=== PATIENT | male | born 1985 | race Caucasian/White ===

== ENCOUNTER 2018-06-16 13:44 | Inpatient (IN) | payer OTHER ==
[2018-06-16] MEDS ORDERED: ONDANSETRON 4 MG/2 ML VIAL ONE (14:35)
[2018-06-16] MEDS ORDERED: NA CHLORIDE 0.9% 2,000 ML ONE ×2 (14:35→15:36)
[2018-06-16] MEDS ORDERED: FAMOTIDINE 20 MG/2 ML VIAL IV ONE (14:35)
[2018-06-16] MEDS ORDERED: MORPHINE 4 MG/ML SYR ONE ×3 (14:35→17:56)
--- NOTE | 2018-06-16 14:45 | RAD REPORT ---
EXAM DESCRIPTION: Júnior Single View06/16/2018 2:36 pm CLINICAL HISTORY: Abdominal pain COMPARISON: 2012 FINDINGS: The lungs appear clear of acute infiltrate. The heart is normal size IMPRESSION: No acute abnormalities displayed
[2018-06-16 14:52] LABS: Absolute Lymphocytes (CBC) 1.9 K/uL (0.7-4.9); Absolute Monocytes 1.2 K/uL (0.1-1.3); Absolute Neutrophil 10.2 K/uL (1.8-8.0); Basophils % 0.3 % (0-1.3); Eosinophils % 0.5 % (0-4.4); Hematocrit 47.1 % (39.6-49.0); Lymphocytes % 14.3 % (15.3-44.8); MPV 7.8 fL (7.6-11.3); Monocytes % 9.1 % (3.3-12.3); RBC Red Blood Cell Count 5.65 M/uL (4.33-5.43)
[2018-06-16 14:53] LABS: Protime INR 1.16
--- NOTE | 2018-06-16 15:12 | ER ---
Nurse's Notes [facility] Name: Santy Pederson Age: 32 yrs Sex: Male : 1985 Arrival Date: 06/16/2018 Time: 13:47 Bed 19 Private MD: None, None Diagnosis: Abdominal tenderness;Vomiting;Acute pancreatitis;Elevated white blood cell count Presentation: 06/16 13:48 Presenting complaint: Patient states: my stomach has been hurting since Friday, more tw2 maybe at the top, i went to the [facility] yesterday they took blood but told me nothing was wrong, i am nauseous and having some diarrhea. Presenting complaint: Patient states: i feel bloated too. Transition of care: patient was not received from another setting of care. Onset of symptoms was June 16, 2018. Risk Assessment: Do you want to hurt yourself or someone else? Patient reports no desire to harm self or others. Initial Sepsis Screen: Does the patient meet any 2 criteria? No. Patient's initial sepsis screen is negative. Does the patient have a suspected source of infection? No. Patient's initial sepsis screen is negative. Care prior to arrival: None. 13:48 Method Of Arrival: Ambulatory tw2 13:48 Acuity: MARYLOU 3 tw2 Triage Assessment: 13:49 Pain: Complains of pain in epigastric area, right upper quadrant, left upper quadrant, tw2 right lower quadrant and left lower quadrant. GI: Reports bloating, nausea. 13:49 General: Appears uncomfortable, Behavior is cooperative. tw2 Historical: - Allergies: 13:51 Fentanyl (Hives, Rash); itching; tw2 - Home Meds: 13:51 None [Active]; tw2 - PMHx: 13:51 Pancreatitis; tw2 - PSHx: 13:51 stent in gallbladder, but was removed 8 yrs ago; tw2 - Immunization history:: Adult Immunizations. - Social history:: Smoking status: . - Ebola Screening: : Patient denies travel to an Ebola-affected area in the 21 days before illness onset. - Family history:: not pertinent. Screenin:12 Abuse screen: Denies threats or abuse. Nutritional screening: No deficits noted. tw2 Tuberculosis screening: No symptoms or risk factors identified. Fall Risk None identified. Assessment: 14:30 General: Appears in no apparent distress. uncomfortable, Behavior is calm, cooperative, jl7 appropriate for age. Pain: Complains of pain in left upper quadrant and right upper quadrant and epigastric area Pain does not radiate. Pain currently is 8 out of 10 on a pain scale. Quality of pain is described as sharp, Pain began 2-3 days ago. Is continuous. Neuro: Level of Consciousness is awake, alert, obeys commands, Oriented to person, place, time, situation. Cardiovascular: Patient's skin is warm and dry. Respiratory: Airway is patent Respiratory effort is even, unlabored, Respiratory pattern is regular, symmetrical. GI: Bowel sounds present X 4 quads. Abd is soft X 4 quads Abdomen is tender to palpation in right upper quadrant and left upper quadrant. : No signs and/or symptoms were reported regarding the genitourinary system. EENT: No signs and/or symptoms were reported regarding the EENT system. Derm: Skin is pink, warm \T\ dry. Musculoskeletal: No signs and/or symptoms reported regarding the musculoskeletal system. 15:00 Reassessment: Patient states symptoms have improved. jl7 15:30 Reassessment: Patient appears in no apparent distress at this time. Patient and/or jl7 family updated on plan of care and expected duration. Pain level reassessed. Patient is alert, oriented x 3, equal unlabored respirations, skin warm/dry/pink. Pt reports increased pain, ERD notified, see MAR for orders. 16:00 Reassessment: Patient states symptoms have improved. jl7 16:30 Reassessment: Patient appears in no apparent distress at this time. Patient and/or jl7 family updated on plan of care and expected duration. Pain level reassessed. Patient is alert, oriented x 3, equal unlabored respirations, skin warm/dry/pink. 17:00 Reassessment: Patient states symptoms have improved. jl7 17:45 Reassessment: Patient appears in no apparent distress at this time. Patient and/or jl7 family updated on plan of care and expected duration. Pain level reassessed. Patient is alert, oriented x 3, equal unlabored respirations, skin warm/dry/pink. Pt reports increased pain, ERD notified, see MAR for orders. 17:48 Reassessment: Attempted to give report, receiving nurse will call back. jl7 18:08 Reassessment: Attempted to give report, placed on hold for 10 minutes, will continue to jl7 wait for receiving nurse to call back for report. 19:27 Reassessment: Patient appears in no apparent distress at this time. Patient and/or tl2 family updated on plan of care and expected duration. Pain level reassessed. Patient is alert, oriented x 3, equal unlabored respirations, skin warm/dry/pink. Will call report after 1930. General: No complaints of concerns at this time. Pt is resting comfortably. . 20:11 Reassessment: Patient appears in no apparent distress at this time. Patient and/or tl2 family updated on plan of care and expected duration. Pain level reassessed. Patient is alert, oriented x 3, equal unlabored respirations, skin warm/dry/pink. pt stable and ready for transport to floor. Vital Signs: 13:49 BP 136 / 107; Pulse 148; Resp 19; Temp 98.4(TE); Pulse Ox 97% on R/A; Weight 145.15 kg tw2 (R); Pain 8/10; 14:49 BP 130 / 99; Pulse 107; Resp 16 S; Pulse Ox 97% on R/A; Pain 8/10; jl7 17:57 BP 139 / 97; Pulse 96; Resp 16 S; Pulse Ox 96% on R/A; jl7 19:27 BP 150 / 100; Pulse 91; Resp 18; Pulse Ox 97% on R/A; tl2 ED Course: 13:47 Patient arrived in ED. mr 13:48 None, None is Private Physician. mr 13:49 Triage completed. tw2 13:49 Arm band placed on. tw2 13:51 Bed in low position. Call light in reach. Adult w/ patient. tw2 13:57 Jayro Glass MD is Attending Physician. [facility] 13:59 Opal Macario, LYLY is Primary Nurse. jl7 14:28 X-ray completed. Portable x-ray completed in exam room. Patient tolerated procedure ml well. 14:30 XRAY Chest (1 view) In Process Unspecified. EDMS 14:49 Initial lab(s) drawn, by co, sent to lab. Urine collected: clean catch specimen, clear. jl7 Inserted saline lock: 20 gauge in right forearm, using aseptic technique. Blood collected. 14:54 EKG done, by oxygen therapy technician. reviewed by Jayro Glass MD. 3 15:11 Kera Marinelli MD is Hospitalizing Provider. jerson 15:13 Radiology exam delayed due to lab results not completed at this time. (BUN/Creatinine). sw 16:14 CT completed. Patient tolerated procedure well. Patient moved to CT via wheelchair. vm2 Patient moved back from CT. 20:12 No provider procedures requiring assistance completed. Patient admitted, IV remains in tl2 place. Administered Medications: 14:40 Drug: Pepcid 20 mg Route: IVP; Site: right forearm; jl7 15:00 Follow up: Response: No adverse reaction jl7 14:40 Drug: NS 0.9% 1000 ml Route: IV; Rate: 1 bolus; Site: right forearm; jl7 15:39 Follow up: IV Status: Completed infusion; IV Intake: 1000ml jl7 14:40 Drug: NS 0.9% 1000 ml Route: IV; Rate: 1 bolus; Site: right forearm; jl7 15:39 Follow up: IV Status: Completed infusion; IV Intake: 1000ml jl7 14:41 Drug: Zofran 4 mg Route: IVP; Site: right forearm; jl7 15:00 Follow up: Response: No adverse reaction; Nausea is decreased jl7 14:43 Drug: morphine 4 mg Route: IVP; Site: right forearm; jl7 15:00 Follow up: Response: No adverse reaction; Pain is decreased jl7 15:30 Drug: NS 0.9% 1000 ml Route: IV; Rate: 1 bolus; Site: right forearm; jl7 16:30 Follow up: Response: No adverse reaction; IV Status: Completed infusion jl7 15:37 Drug: morphine 4 mg Route: IVP; Site: right forearm; jl7 18:09 Follow up: Response: No adverse reaction; Pain is decreased jl7 15:38 Drug: NS 0.9% 1000 ml Route: IV; Rate: 125 ml/hr; Site: right forearm; jl7 18:10 Follow up: IV Status: Infusion continued upon admission jl7 17:45 Drug: morphine 4 mg Route: IVP; Site: right forearm; jl7 18:30 Follow up: Response: No adverse reaction; Pain is decreased jl7 Intake: 15:39 IV: 1000ml; Total: 1000ml. jl7 15:39 IV: 1000ml; Total: 2000ml. jl7 Outcome: 15:11 Decision to Hospitalize by Provider. jerson 20:12 Admitted to Med/surg accompanied by tech, family with patient, via wheelchair, room tl2 215, with chart, Report called to LYLY Carrasquillo 20:12 Condition: stable 20:12 Discharge instructions given to patient, family, Instructed on the need for admit. 20:13 Patient left the ED. tl2 Signatures: Dispatcher [employer] EDJayro Doherty MD MD cha Rivera, Staci mr Ty, Soraya Abdul, Denise Cohen, RN RN 2 Catie Mead RN RN tl2 Opal Macario RN RN jl7 Trixie Conde [facility] Litzy Bird 3 Corrections: (The following items were deleted from the chart) 18:09 18:09 Response: No adverse reaction; IV Status: Completed infusion jlAlexa jl7
--- NOTE | 2018-06-16 15:13 | EDPHYS ---
Physician Documentation [facility] Name: Santy Pederson Age: 32 yrs Sex: Male : 1985 Arrival Date: 06/16/2018 Time: 13:47 Bed 19 Private MD: None, None ED Physician Jayro Glass HPI: 06/16 15:08 This 32 yrs old Male presents to ER via Ambulatory with complaints of jerson Abdominal Pain. 15:08 The patient presents with abdominal pain in the epigastric area, in the upper abdomen. jerson Onset: The symptoms/episode began/occurred 3 day(s) ago. The symptoms radiate to Associated signs and symptoms: Pertinent positives: nausea and vomiting. The symptoms are described as constant, crampy. Modifying factors: The symptoms are alleviated by nothing, the symptoms are aggravated by nothing. Severity of pain: At its worst the pain was moderate in the emergency department the pain is unchanged. The patient has experienced similar episodes in the past, a few times. Historical: - Allergies: 13:51 Fentanyl (Hives, Rash); itching; tw2 - Home Meds: 13:51 None [Active]; tw2 - PMHx: 13:51 Pancreatitis; tw2 - PSHx: 13:51 stent in gallbladder, but was removed 8 yrs ago; tw2 - Immunization history:: Adult Immunizations. - Social history:: Smoking status: . - Ebola Screening: : Patient denies travel to an Ebola-affected area in the 21 days before illness onset. - Family history:: not pertinent. ROS: 15:08 Constitutional: Negative for fever, chills, and weight loss, Eyes: Negative for injury, jerson pain, redness, and discharge, ENT: Negative for injury, pain, and discharge, Neck: Negative for injury, pain, and swelling, Cardiovascular: Negative for chest pain, palpitations, and edema, Respiratory: Negative for shortness of breath, cough, wheezing, and pleuritic chest pain, Back: Negative for injury and pain, : Negative for injury, bleeding, discharge, and swelling, MS/Extremity: Negative for injury and deformity, Skin: Negative for injury, rash, and discoloration, Neuro: Negative for headache, weakness, numbness, tingling, and seizure, Psych: Negative for depression, anxiety, suicide ideation, homicidal ideation, and hallucinations, Allergy/Immunology: Negative for hives, rash, and allergies, Endocrine: Negative for neck swelling, polydipsia, polyuria, polyphagia, and marked weight changes, Hematologic/Lymphatic: Negative for swollen nodes, abnormal bleeding, and unusual bruising. 15:08 Abdomen/GI: Positive for abdominal pain, of the epigastric area, right upper quadrant and left upper quadrant. Exam: 15:08 Constitutional: This is a well developed, well nourished patient who is awake, alert, jerson and in no acute distress. Head/Face: Normocephalic, atraumatic. Eyes: Pupils equal round and reactive to light, extra-ocular motions intact. Lids and lashes normal. Conjunctiva and sclera are non-icteric and not injected. Cornea within normal limits. Periorbital areas with no swelling, redness, or edema. ENT: Nares patent. No nasal discharge, no septal abnormalities noted. Tympanic membranes are normal and external auditory canals are clear. Oropharynx with no redness, swelling, or masses, exudates, or evidence of obstruction, uvula midline. Mucous membranes moist. Neck: Trachea midline, no thyromegaly or masses palpated, and no cervical lymphadenopathy. Supple, full range of motion without nuchal rigidity, or vertebral point tenderness. No Meningismus. Chest/axilla: Normal chest wall appearance and motion. Nontender with no deformity. No lesions are appreciated. Cardiovascular: Regular rate and rhythm with a normal S1 and S2. No gallops, murmurs, or rubs. Normal PMI, no JVD. No pulse deficits. Respiratory: Lungs have equal breath sounds bilaterally, clear to auscultation and percussion. No rales, rhonchi or wheezes noted. No increased work of breathing, no retractions or nasal flaring. Back: No spinal tenderness. No costovertebral tenderness. Full range of motion. Male : Normal genitalia with no discharge or lesions. Skin: Warm, dry with normal turgor. Normal color with no rashes, no lesions, and no evidence of cellulitis. MS/ Extremity: Pulses equal, no cyanosis. Neurovascular intact. Full, normal range of motion. Neuro: Awake and alert, GCS 15, oriented to person, place, time, and situation. Cranial nerves II-XII grossly intact. Motor strength 5/5 in all extremities. Sensory grossly intact. Cerebellar exam normal. Normal gait. Psych: Awake, alert, with orientation to person, place and time. Behavior, mood, and affect are within normal limits. 15:08 Abdomen/GI: Inspection: abdomen appears normal, Bowel sounds: normal, Palpation: mild abdominal tenderness, moderate abdominal tenderness, in the epigastric area, right upper quadrant and left upper quadrant. Vital Signs: 13:49 BP 136 / 107; Pulse 148; Resp 19; Temp 98.4(TE); Pulse Ox 97% on R/A; Weight 145.15 kg tw2 (R); Pain 8/10; 14:49 BP 130 / 99; Pulse 107; Resp 16 S; Pulse Ox 97% on R/A; Pain 8/10; jl7 17:57 BP 139 / 97; Pulse 96; Resp 16 S; Pulse Ox 96% on R/A; jl7 19:27 BP 150 / 100; Pulse 91; Resp 18; Pulse Ox 97% on R/A; tl2 MDM: 13:57 [facility] 15:12 Data reviewed: vital signs, nurses notes, lab test result(s), EKG, radiologic studies, [facility] scan, plain films. 06/16 14:18 Order name: Basic Metabolic Panel; Complete Time: 15:26 [facility] 06/16 14:18 Order name: CBC with Diff; Complete Time: 15:07 [facility] 06/16 14:18 Order name: LFT's; Complete Time: 15:26 [facility] 06/16 14:18 Order name: Magnesium; Complete Time: 15:26 [facility] 06/16 14:18 Order name: NT PRO-BNP; Complete Time: 15:26 [facility] 06/16 14:18 Order name: PT-INR; Complete Time: 14:56 [facility] 06/16 14:18 Order name: Troponin (emerg Dept Use Only); Complete Time: 15:26 [facility] 06/16 14:18 Order name: XRAY Chest (1 view); Complete Time: 14:56 [facility] 06/16 14:18 Order name: Lipase; Complete Time: 15:26 [facility] 06/16 14:19 Order name: Urine Culture [facility] 06/16 14:31 Order name: Urine Dipstick--Ancillary (enter results); Complete Time: 16:10 06/16 15:08 Order name: US Abdomen Limited [facility] 06/16 15:47 Order name: Abdomen ; Complete Time: 16:54 [facility] 06/16 14:18 Order name: EKG; Complete Time: 14:19 [facility] 06/16 14:18 Order name: Cardiac monitoring; Complete Time: 14:46 [facility] 06/16 14:18 Order name: EKG - Nurse/Tech; Complete Time: 14:46 [facility] 06/16 14:18 Order name: IV Saline Lock; Complete Time: 14:46 [facility] 06/16 14:18 Order name: Labs collected and sent; Complete Time: 14:46 [facility] 06/16 14:18 Order name: O2 Per Protocol; Complete Time: 14:46 [facility] 06/16 17:24 Order name: US EDMS 06/16 14:18 Order name: O2 Sat Monitoring; Complete Time: 14:46 [facility] 06/16 14:19 Order name: Urine Dipstick-Ancillary (obtain specimen); Complete Time: 14:43 [facility] Administered Medications: 14:40 Drug: Pepcid 20 mg Route: IVP; Site: right forearm; jl7 15:00 Follow up: Response: No adverse reaction jl7 14:40 Drug: NS 0.9% 1000 ml Route: IV; Rate: 1 bolus; Site: right forearm; jl7 15:39 Follow up: IV Status: Completed infusion; IV Intake: 1000ml jl7 14:40 Drug: NS 0.9% 1000 ml Route: IV; Rate: 1 bolus; Site: right forearm; jl7 15:39 Follow up: IV Status: Completed infusion; IV Intake: 1000ml jl7 14:41 Drug: Zofran 4 mg Route: IVP; Site: right forearm; jl7 15:00 Follow up: Response: No adverse reaction; Nausea is decreased jl7 14:43 Drug: morphine 4 mg Route: IVP; Site: right forearm; jl7 15:00 Follow up: Response: No adverse reaction; Pain is decreased jl7 15:30 Drug: NS 0.9% 1000 ml Route: IV; Rate: 1 bolus; Site: right forearm; jl7 16:30 Follow up: Response: No adverse reaction; IV Status: Completed infusion jl7 15:37 Drug: morphine 4 mg Route: IVP; Site: right forearm; jl7 18:09 Follow up: Response: No adverse reaction; Pain is decreased jl7 15:38 Drug: NS 0.9% 1000 ml Route: IV; Rate: 125 ml/hr; Site: right forearm; jl7 18:10 Follow up: IV Status: Infusion continued upon admission jl7 17:45 Drug: morphine 4 mg Route: IVP; Site: right forearm; jl7 18:30 Follow up: Response: No adverse reaction; Pain is decreased jl7 Disposition: 06/16/18 15:11 Hospitalization ordered by Kera Marinelli for Inpatient Admission. Preliminary diagnosis are Abdominal tenderness, Vomiting, Acute pancreatitis, Elevated white blood cell count. - Bed requested for Telemetry/MedSurg (Inpatient). - Status is Inpatient Admission. tl2 - Condition is Stable. - Problem is new. - Symptoms have improved. UTI on Admission? No Signatures: Dispatcher [employer] [facility] Rhina Villar RN RN Jayro Glass MD MD cha Wise, Tara RN RN 2 Catie Mead RN RN tl2 Opal Macario RN RN jl7 Corrections: (The following items were deleted from the chart) 15:27 15:11 Hospitalization Ordered by Kera Marinelli MD for Inpatient Admission. Preliminary [facility] diagnosis is Abdominal tenderness; Vomiting; Acute pancreatitis. Bed requested for Telemetry/MedSurg (Inpatient). Status is Inpatient Admission. Condition is Stable. Problem is new. Symptoms have improved. UTI on Admission? No. jerson 15:46 14:19 Abdomen Pelvis W Con+CT.RAD.BRZ ordered. [facility] 17:01 15:27 06/16/2018 15:11 Hospitalization Ordered by Kera Marinelli MD for Inpatient dw Admission. Preliminary diagnosis is Abdominal tenderness; Vomiting; Acute pancreatitis; Elevated white blood cell count. Bed requested for Telemetry/MedSurg (Inpatient). Status is Inpatient Admission. Condition is Stable. Problem is new. Symptoms have improved. UTI on Admission? No. jerson 20:13 17:01 06/16/2018 15:11 Hospitalization Ordered by Kera Marinelli MD for Inpatient tl2 Admission. Preliminary diagnosis is Abdominal tenderness; Vomiting; Acute pancreatitis; Elevated white blood cell count. Bed requested for Telemetry/MedSurg (Inpatient). Status is Inpatient Admission. Condition is Stable. Problem is new. Symptoms have improved. UTI on Admission? No. heather
[2018-06-16 15:19] LABS: ALT/SGPT 30 U/L (12-78); AST/SGOT 16 U/L (15-37); Albumin 3.9 g/dL (3.4-5.0); Alkaline Phosphatase 99 U/L (45-117); BUN Blood Urea Nitrogen 14 mg/dL (7-18); Bicarbonate 26 mmol/L (21-32); Bilirubin Direct 0.2 mg/dL (0-0.2); Bilirubin Total 0.8 mg/dL (0.2-1.0); Glucose Level 103 mg/dL (74-106); Lipase 525 U/L (73-393); NT PRO-BNP 9 pg/mL (<125); Potassium 3.5 mmol/L (3.5-5.1); Protein, Total 8.9 g/dL (6.4-8.2); Sodium Level 135 mmol/L (136-145); Troponin (Emerg Dept Use Only) < 0.02 ng/mL (0.0-0.045)
[2018-06-16 15:59] LABS: Urine Blood NEGATIVE (NEG); Urine Glucose NEGATIVE (NEG); Urine Protein 1+ (NEG)
--- NOTE | 2018-06-16 16:26 | RAD REPORT ---
EXAM DESCRIPTION: CTAbdomen Pelvis W Contrast - 06/16/2018 4:17 pm CLINICAL HISTORY: Abdominal pain. Abd Pain COMPARISON: CT ABD PELVIS W CONTRAST dated 08/04/2012 TECHNIQUE: Biphasic CT imaging of the abdomen and pelvis was performed with 100 ml non-ionic IV cont rast. All CT scans are performed using dose optimization technique as appropriate and may include automated exposure control or mA/KV adjustment according to patient size. FINDINGS: The lung bases are clear. The liver, spleen, adrenal glands and kidneys are within normal limits. Mild inflammatory changes ar e seen surrounding the tail the pancreas most compatible with acute pancreatitis. No pseudocyst, port al vein thrombus or pancreatic necrosis seen. No bowel obstruction, free air, free fluid or abscess. The appendix is normal. No evidence of signi ficant lymphadenopathy. No suspicious bony findings. IMPRESSION: Mild acute pancreatitis involving the pancreatic tail.
--- NOTE | 2018-06-16 17:22 | RAD REPORT ---
EXAM DESCRIPTION: US - Abdomen Exam Limited - 06/16/2018 4:28 pm CLINICAL HISTORY: ABD PAIN COMPARISON: ABDOMINAL EXAM COMPLETE dated 08/06/2012 FINDINGS: The gallbladder demonstrates no gallstones. No pericholecystic fluid or gallbladder wall t hickening. The common bile duct is normal measuring 4 mm. The liver demonstrates no findings of intrahepatic biliary dilatation. IMPRESSION: Unremarkable examination.
[2018-06-16] MEDS ORDERED: ONDANSETRON 4 MG/2 ML VIAL IV PRN (17:28)
[2018-06-16] MEDS ORDERED: MORPHINE 2 MG/ML SYR IV PRN (17:30)
[2018-06-16 20:38] VITALS: BMI 45.1
[2018-06-16] MEDS: ENOXAPARIN 40 MG/0.4 ML SQ SCH (20:51)
[2018-06-16] MEDS: NA CHLORIDE 0.9% 1,000 ML IV SCH (20:51)
[2018-06-16] MEDS: KETOROLAC 30 MG/ML INJ IV PRN (22:54)
[2018-06-17] MEDS: MORPHINE 2 MG/ML SYR IV PRN ×3 (02:20→20:33)
[2018-06-17] MEDS: NA CHLORIDE 0.9% 1,000 ML IV SCH ×5 (04:00→23:16)
[2018-06-17] MEDS: KETOROLAC 30 MG/ML INJ IV PRN ×5 (05:02→22:56)
--- NOTE | 2018-06-17 05:31 | HP ---
Date of Admission: 06/16/2018 Chief Complaint: Abdominal pain. History Of Present Illness: Patient is a 32-year-old man with no significant past medical history, p resented to the emergency room with abdominal pain that started on Friday associated with nausea, b ut no vomiting or diarrhea. Patient mentioned that his abdominal pain was getting worse with eating food. Patient had a history of pancreatitis 7 years ago and was due to gallbladder sludge. Patient denied any fever, headache, dizziness, change in urinary habits, chest pain, palpitations, shortness of breath, or any other complaints. Allergies: PATIENT IS ALLERGIC TO FENTANYL. Past Medical History: As above. Past Surgical History: Gallbladder stent. Home Medications: None. Social History: Patient denied smoking. Social drinking. Denied illicit drug use. Review of Systems: Ten points ROS is otherwise unremarkable. Physical Examination: Vital Signs: Blood pressure of 120/75, pulse rate of 84, and temperature afebrile, saturating 99% on room air. General: Patient is awake, alert, oriented x3, not in acute distress. Neck: Supple. No JVD. HEENT: PERRLA. Normocephalic, atraumatic. Heart: Normal S1, S2. No murmurs. Respiratory: Bilateral air entry. No wheezing or crackles. Gastrointestinal: Epigastric tenderness. No rigidity. Bowel sounds positive. Skin: No rash. Extremities: No cyanosis, clubbing, or edema. Neurological: No focal weakness noted. Laboratory Data: White blood cell count of 13.4, hemoglobin is 16, platelets of 258. Sodium of 135, potassium of 3.5, BUN 14, creatinine 1.06. Lipase of 525. AST and ALT within normal limits. Urine negative for infection. Imaging: Abdominal CT showed mild acute pancreatitis in the tail of the pancreas. Chest x-ray, no a cute abnormalities seen. Abdominal ultrasound, gallbladder demonstrated no gallstones, no pericolic cystic fluid or gallbladder wall thickening. Common bile duct is normal and measuring 4 mm. Assessment: Acute pancreatitis. Plan: 1.IV fluid hydration. 2.Pain management. 3.No need for antibiotics for now. 4.Monitor lipase and electrolytes. 5.N.p.o. for now and advance diet as tolerated. 6.Pain management with morphine 2 mg q.6 hours p.r.n. 7.Deep venous thrombosis prophylaxis with Lovenox. FABIANO Voice ID: [id number]
[2018-06-17 05:42] LABS: Absolute Lymphocytes (CBC) 1.5 K/uL (0.7-4.9); Absolute Monocytes 1.3 K/uL (0.1-1.3); Absolute Neutrophil 7.7 K/uL (1.8-8.0); Basophils % 0.3 % (0-1.3); Eosinophils % 1.1 % (0-4.4); Hematocrit 41.4 % (39.6-49.0); Lymphocytes % 13.9 % (15.3-44.8); MPV 7.8 fL (7.6-11.3); Monocytes % 12.4 % (3.3-12.3); RBC Red Blood Cell Count 4.94 M/uL (4.33-5.43)
[2018-06-17 05:59] LABS: Albumin 3.3 g/dL (3.4-5.0); Phosphorus 2.5 mg/dL (2.5-4.9); Potassium 4.2 mmol/L (3.5-5.1); Protein, Total 7.5 g/dL (6.4-8.2)
[2018-06-17] MEDS ORDERED: POTASSIUM PHOS IN 0.9 % NACL 15 MMOL/250 ML BAG IV ONE (07:00)
[2018-06-17] MEDS: ENOXAPARIN 40 MG/0.4 ML SQ SCH (09:03)
[2018-06-17] MEDS ORDERED: HYDROCODONE/APAP 7.5/325 MG TAB PO PRN (15:02)
[2018-06-17] MEDS ORDERED: TRAMADOL HCL 50 MG TAB PO PRN (15:02)
--- NOTE | 2018-06-17 15:05 | P.PN ---
Subjective Date of Service: 06/17/18 Primary Care Provider: None Chief Complaint: Epigastric abdominal pain Subjective: Improving, Doing well Physical Examination - Vital Signs Temperature: 97.8 F Blood Pressure: 130/75 Pulse: 88 Respirations: 13 Pulse Ox (%): 96 - Physical Exam General: Alert, In no apparent distress, Oriented x3, Cooperative HEENT: Atraumatic Neck: Supple Respiratory: Clear to auscultation bilaterally, Normal air movement Cardiovascular: Normal pulses, Regular rate/rhythm Gastrointestinal: Normal bowel sounds, Soft and benign, Non-distended, No tenderness, No masses, No rebound, No guarding Musculoskeletal: No erythema, No tenderness, No warmth Integumentary: No tenderness/swelling, No erythema, No warmth, No cyanosis Neurological: Normal speech, Normal strength at 5/5 x4 extr, Normal tone, Normal affect - Studies Laboratory Data (last 24 hrs) 06/16/18 14:40: Sodium 135 L, Potassium 3.5, BUN 14, Creatinine 1.06, Glucose 103, Magnesium 2.0, Total Bilirubin 0.8, AST 16, ALT 30, Alkaline Phosphatase 99 , Lipase 525 H Medications List Reviewed: Yes Assessment & Plan Discharge Plan: Home Plan to discharge in: 24 Hours Physician Review Additional Text: Impression: Epigastric abdominal pain secondary to acute pancreatitis Plan: Patient doing well at this time. No significant abdominal pain noted. Will advance diet to a clear liquid diet. If tolerated then will increase to a GI soft. Anticipate discharge in the next 24 hr if significantly improved. Will check fasting lipid panel tomorrow. Continue with DVT prophylaxis. Will provide oral medication for pain. will add Pepcid. Will reassess tomorrow. Time Spent Managing Pts Care (In Minutes): 55
[2018-06-17] MEDS: FAMOTIDINE 20 MG TAB PO SCH (20:33)
[2018-06-18 00:51] VITALS: O2SAT 99
[2018-06-18] MEDS: NA CHLORIDE 0.9% 1,000 ML IV SCH ×2 (05:16→10:00)
[2018-06-18] MEDS: MORPHINE 2 MG/ML SYR IV PRN (05:18)
[2018-06-18 06:05] LABS: Absolute Lymphocytes (CBC) 1.5 K/uL (0.7-4.9); Absolute Neutrophil 6.1 K/uL (1.8-8.0); Basophils % 0.3 % (0-1.3); Eosinophils % 3.4 % (0-4.4); Hematocrit 38.9 % (39.6-49.0); Lymphocytes % 16.6 % (15.3-44.8); MPV 7.7 fL (7.6-11.3); Monocytes % 11.4 % (3.3-12.3); RBC Red Blood Cell Count 4.66 M/uL (4.33-5.43)
[2018-06-18 06:23] LABS: BUN Blood Urea Nitrogen 10 mg/dL (7-18); Bicarbonate 27 mmol/L (21-32); Glucose Level 93 mg/dL (74-106); HDL Cholesterol 42 mg/dL (40-60); LDL Cholesterol, Calculated 80 (<130); Lipase 176 U/L (73-393); Magnesium 1.9 mg/dL (1.8-2.4); Phosphorus 2.2 mg/dL (2.5-4.9); Potassium 4.2 mmol/L (3.5-5.1); Sodium Level 141 mmol/L (136-145)
[2018-06-18] MEDS: POTASS/SODIUM PHOSPHATE 1 PKT POWD.PACK PO SCH ×2 (09:06→10:09)
[2018-06-18] MEDS: ENOXAPARIN 40 MG/0.4 ML SQ SCH (09:08)
[2018-06-18] MEDS: FAMOTIDINE 20 MG TAB PO SCH (09:08)
--- NOTE | 2018-06-18 11:26 | P.DS ---
Admission Date: 06/16/18 Discharge Date: 06/18/18 Primary Care Provider: None Disposition: ROUTINE DISCHARGE Discharge Condition: GOOD Reason for Admission: Epigastric abdominal pain Consultations: none Procedures: CT scan: FINDINGS: The lung bases are clear. The liver, spleen, adrenal glands and kidneys are within normal limits. Mild inflammatory changes are seen surrounding the tail the pancreas most compatible with acute pancreatitis. No pseudocyst, portal vein thrombus or pancreatic necrosis seen. No bowel obstruction, free air, free fluid or abscess. The appendix is normal. No evidence of significant lymphadenopathy. No suspicious bony findings. IMPRESSION: Mild acute pancreatitis involving the pancreatic tail. ABUS: FINDINGS: The gallbladder demonstrates no gallstones. No pericholecystic fluid or gallbladder wall thickening. The common bile duct is normal measuring 4 mm. The liver demonstrates no findings of intrahepatic biliary dilatation. IMPRESSION: Unremarkable examination. Medical Problem list: Epigastric abdominal pain secondary to acute pancreatitis Suspect GERD Obesity, BMI 45 Brief History of Present Illness: 32 yo CM presented with nausea and vomiting, abdominal pain. Patient found to have acute pancreatitis. Patient was admitted for treatment. Hospital Course: Patient presented with abdominal pain, nausea and vomiting. Patient found to have acute pancreatitis, likely viral. CT scan of the abdomen and abdominal ultrasound unremarkable. Fasting lipid panel unremarkable. Patient responded with IV fluids and pain control. At discharge he is without any significant abdominal pain, nausea, and vomiting. The patient will be discharged home. Patient will be provided Zofran as needed for nausea. Patient may use ibuprofen or Tylenol as needed for pain. Recommend to follow up with GI in 2-4 weeks to follow up this hospitalization and further assess his condition. Patient may have underlying GERD. At discharge he will continue with Pepcid 20 mg 1 pill twice daily. Recommend a follow up with GI as an outpatient to further address. Lifestyle modification education will be provided. Vital Signs/Physical Exam: Temp Pulse Resp BP Pulse Ox 97.7 F 77 14 138/91 H 96 06/18/18 08:00 06/18/18 08:00 06/18/18 08:00 06/18/18 08:00 06/18/18 08:00 General: Alert, In no apparent distress, Oriented x3, Cooperative HEENT: Atraumatic Neck: Supple Respiratory: Clear to auscultation bilaterally, Normal air movement Cardiovascular: Regular rate/rhythm Gastrointestinal: Normal bowel sounds, Soft and benign, Non-distended, No ascites, No tenderness, No masses, No rebound, No guarding Musculoskeletal: No erythema, No tenderness, No warmth Integumentary: No tenderness/swelling, No erythema, No warmth, No cyanosis Neurological: Normal speech, Normal strength at 5/5 x4 extr, Normal tone, Normal affect Laboratory Data at Discharge: WBC 8.9 K/uL (4.3-10.9) D 06/18/18 05:31 Hgb 13.6 g/dL (13.6-17.9) 06/18/18 05:31 Hct 38.9 % (39.6-49.0) L 06/18/18 05:31 Plt Count 243 K/uL (152-406) 06/18/18 05:31 PT 13.6 SECONDS (9.5-12.5) H 06/16/18 14:40 INR 1.16 06/16/18 14:40 Sodium 141 mmol/L (136-145) 06/18/18 05:31 Potassium 4.2 mmol/L (3.5-5.1) 06/18/18 05:31 BUN 10 mg/dL (7-18) 06/18/18 05:31 Creatinine 0.95 mg/dL (0.55-1.3) 06/18/18 05:31 Glucose 93 mg/dL (74-106) 06/18/18 05:31 Phosphorus 2.2 mg/dL (2.5-4.9) L 06/18/18 05:31 Magnesium 1.9 mg/dL (1.8-2.4) 06/18/18 05:31 Total Bilirubin 1.0 mg/dL (0.2-1.0) 06/17/18 05:07 AST 12 U/L (15-37) L 06/17/18 05:07 ALT 25 U/L (12-78) 06/17/18 05:07 Alkaline Phosphatase 84 U/L (45-117) 06/17/18 05:07 Triglycerides 81 mg/dL (<150) 06/18/18 05:31 Cholesterol 138 mg/dL (<200) 06/18/18 05:31 HDL Cholesterol 42 mg/dL (40-60) 06/18/18 05:31 Cholesterol/HDL Ratio 3.29 06/18/18 05:31 Lipase 176 U/L (73-393) 06/18/18 05:31 Home Medications: Famotidine [Pepcid*] 20 mg PO BID #60 tab 06/18/18 Ondansetron HCl [Zofran] 4 mg PO TID PRN #10 tablet 06/18/18 New Medications: Famotidine [Pepcid*] 20 mg PO BID #60 tab Ondansetron HCl [Zofran] 4 mg PO TID PRN #10 tablet PRN Reason: Nausea / Vomiting Patient Discharge Instructions: 1. Patient will establish care with a PCP to follow up this hospitalization. 2. Patient presented with abdominal pain, nausea and vomiting. Patient found to have acute pancreatitis, likely viral. CT scan of the abdomen and abdominal ultrasound unremarkable. Fasting lipid panel unremarkable. Patient responded with IV fluids and pain control. At discharge he is without any significant abdominal pain, nausea, and vomiting. The patient will be discharged home. Patient will be provided Zofran as needed for nausea. Patient may use ibuprofen or Tylenol as needed for pain. Recommend to follow up with GI in 2-4 weeks to follow up this hospitalization and further assess his condition. 3. Patient may have underlying GERD. At discharge he will continue with Pepcid 20 mg 1 pill twice daily. Recommend a follow up with GI as an outpatient to further address. 4. Lifestyle modification education will be provided. Diet: GI soft diet Activity: Ad betsy Time spent managing pt's care (in minutes): 55
[2018-06-18 12:19] VITALS: BP 128/79; TEMP 98
--- NOTE | 2018-06-23 11:07 | EKG ---
Test Date: 2018-06-16 Test Time: 14:48:17 Senior [employer] Developer: LEILANI MEASUREMENT RESULTS: Intervals: Rate: 102 IL: 140 QRSD: 96 QT: 360 QTc: 469 [place]: P: 37 IL: 140 QRS: 1 T: 40 INTERPRETIVE STATEMENTS: Sinus tachycardia Otherwise normal ECG No previous ECG available for comparison Electronically Signed On 06-16-18 16:59:24 CDT by Corey Huerta
== END 2018-06-18 12:38 | disposition home or self-care (01) | DRG 439 ==
LOC: ER 13:44 → ERHOLD 15:45 → 2ND 20:07
PROVIDERS: ADMIT Internal Medicine; ATTEND Internal Medicine
DX: K85.90 Acute pancreatitis without necrosis or infection, unspecified (principal); Z68.42 Body mass index [BMI] 45.0-49.9, adult; K21.9 Gastro-esophageal reflux disease without esophagitis; E66.9 Obesity, unspecified
CPT/HCPCS: 36415; 71045; 74177; 76705; 80048; 80053; 80061; 80076; 81003; 83690; 83735; 83880; 84100; 84484; 85025; 85610; 87086; 87088; 93005; 96361; 96374; 96375; 99285; J1650; J2270; J2405; J7030; Q9967